=== PATIENT | male | born 1985 | race Two or more races ===

== ENCOUNTER 2016-09-10 20:04 | Emergency (ER) | payer MEDICAID ==
[2016-09-10] MEDS ORDERED: NO HOME MEDICATION XX (21:50)
[2016-09-10] MEDS ORDERED: ERYTHROMYCIN1 GM OP (22:40)
== END 2016-09-10 22:50 ==
LOC: EDMED 20:04
PROC: 08C9XZZ Extirpation of Matter from Left Cornea, External Approach (ICD-10-PCS; principal; 2016-09-10)
DX: T15.02XA Foreign body in cornea, left eye, initial encounter (principal); X58.XXXA Exposure to other specified factors, initial encounter